=== PATIENT | female | born 2000 | race Two or more races ===

== ENCOUNTER 2023-04-07 21:21 | Emergency (ER) | payer SELFPAY ==
[~2023-04-07] VITALS: Ht 154.9 cm; Wt 59.0 kg
[2023-04-07 22:00] VITALS: O2SAT 99
== END 2023-04-07 23:18 | disposition home or self-care (01) ==
LOC: FSED 22:00
DX: R05.9 Cough, unspecified (principal); J06.9 Acute upper respiratory infection, unspecified; B34.9 Viral infection, unspecified; Z20.822 Contact with and (suspected) exposure to COVID-19
CPT/HCPCS: 0223U; 87400; 99282